=== PATIENT | female | born 1985 | race Caucasian/White ===

== ENCOUNTER 2020-11-08 10:56 | Emergency (ER) | payer OTHER ==
[~2020-11-08] VITALS: Ht 165.1 cm; Wt 53.5 kg
[2020-11-08] MEDS ORDERED: KETOROLAC TROMETHAMINE INJ 60 MG/2 ML VIAL IM ONE (11:00)
[2020-11-08] MEDS ORDERED: MORPHINE SULFATE INJ 2 MG/ML DISP.SYRIN IM ONE (11:00)
--- NOTE | 2020-11-08 11:02 | NUR ---
BIBRA 89 C/O BACK PAIN AND SPASM. PER EMS SHE JUST SNEEZE AND SUDDEN BACK PAIN AND SPASM. UNABLE TO STAND. THE PATIENT RATES BACK PAIN 10/10. DENIES NUMBNESS/ TINGLING INTHE EXTREMITIES. IN ROOM AIR AND DENIES SOB. RESPIRATION REGULAR AND UNLABORED. WILL CONTINUE TO MONITOR THE PATIENT.
[2020-11-08] MEDS ORDERED: MORPHINE SULFATE INJ 4 MG/ML DISP.SYRIN ONE (11:14)
[2020-11-08] MEDS ORDERED: KETOROLAC TROMETHAMINE INJ 30 MG/ML VIAL ONE (11:14)
--- NOTE | 2020-11-08 12:09 | NUR ---
PATIENT TAKEN TO CT
[2020-11-08] MEDS ORDERED: MORPHINE SULFATE INJ 10 MG/ML DISP.SYRIN IV ONE (12:30)
[2020-11-08] MEDS ORDERED: ONDANSETRON HCL/PF 4 MG/2 ML VIAL IV ONE ×2 (12:30→13:00)
--- NOTE | 2020-11-08 12:30 | NUR ---
THE PATIENT IS BACK FROM CT IN STABLE CONDITION.
[2020-11-08] MEDS ORDERED: HYDROMORPHONE 1 MG/1 ML DISP.SYRIN IV ONE (13:00)
[2020-11-08] MEDS ORDERED: HYDROMORPHONE 1 MG/1 ML DISP.SYRIN ONE (13:18)
[2020-11-08] MEDS ORDERED: ONDANSETRON HCL/PF 4 MG/2 ML VIAL ONE (13:18)
[2020-11-08] MEDS ORDERED: DIAZ5TAB4 PO (13:41)
--- NOTE | 2020-11-08 15:01 | NUR ---
IV removed. Catheter intact and site benign. Pressure and 4x4 applied to site. No bleeding noted.Patient discharged to home in stable condition. The patient alert and oriented x4. In room air and denies SOB. Respiration regular and unlabored. Written and verbal after care instructions given. Patient verbalizes understanding of instruction. The patient is discharged home with and in stable condition.
[2020-11-08 15:02] VITALS: BP 112/67
== END 2020-11-08 15:02 | disposition home or self-care (01) ==
LOC: ER 11:00
DX: S39.012A Strain of muscle, fascia and tendon of lower back, initial encounter (principal); X58.XXXA Exposure to other specified factors, initial encounter; Y93.89 Activity, other specified; Y92.89 Other specified places as the place of occurrence of the external cause; Y99.8 Other external cause status
CPT/HCPCS: 36415; 72131; 84702; 96372 ×2; 96374; 96375; 99285; J1170; J1885; J2270; J2405